=== PATIENT | male | born 1950 | race Hispanic/Latino ===

== ENCOUNTER 2017-07-19 09:57 | Emergency (ER) | payer OTHER ==
[~2017-07-19] VITALS: Ht 160 cm; Wt 65.0 kg
[2017-07-19] MEDS ORDERED: BUPROPION HCL100 MG PO (10:27)
[2017-07-19] MEDS ORDERED: SAW PALMETTO500 MG PO (10:27)
[2017-07-19] MEDS ORDERED: CLONAZEPAM0.5 MG PO (10:28)
[2017-07-19] MEDS ORDERED: MEMANTINE HCL10 MG PO (10:29)
[2017-07-19] MEDS ORDERED: LAMOTRIGINE150 MG PO (10:29)
[2017-07-19] MEDS ORDERED: ZOLPIDEM5 M1 PO (10:30)
[2017-07-19] MEDS ORDERED: BRIMONIDINE0.15 % OU (10:31)
[2017-07-19] MEDS ORDERED: XALATAN0.005 % OU (10:31)
[2017-07-19] MEDS ORDERED: VENLAFAXINE HCL75 M1 PO (10:32)
[2017-07-19] MEDS ORDERED: DOXYCYC MONO100 M1 PO (11:59)
[2017-07-19] MEDS ORDERED: TORADOL PO (11:59)
[2017-07-19 12:36] VITALS: BP 151/73
== END 2017-07-19 12:36 | disposition home or self-care (01) | DRG 563 ==
LOC: ED 09:57
PROC: 0HQGXZZ Repair Left Hand Skin, External Approach (ICD-10-PCS; principal; 2017-07-19)
DX: S62.667A Nondisplaced fracture of distal phalanx of left little finger, initial encounter for closed fracture (principal); S61.217A Laceration without foreign body of left little finger without damage to nail, initial encounter; W23.1XXA Caught, crushed, jammed, or pinched between stationary objects, initial encounter; Y93.89 Activity, other specified; Y92.009 Unspecified place in unspecified non-institutional (private) residence as the place of occurrence of the external cause

== ENCOUNTER 2017-07-22 09:16 | Emergency (ER) | payer OTHER ==
[~2017-07-22] VITALS: Ht 160 cm; Wt 62.0 kg
[~2017-07-22 09:16] MED LIST: BRIMONIDINE0.15 % OU; BUPROPION HCL100 MG PO; CLONAZEPAM0.5 MG PO; DOXYCYC MONO100 M1 PO; LAMOTRIGINE150 MG PO; MEMANTINE HCL10 MG PO; SAW PALMETTO500 MG PO; TORADOL PO; VENLAFAXINE HCL75 M1 PO; XALATAN0.005 % OU; ZOLPIDEM5 M1 PO
[2017-07-22 10:38] VITALS: BP 122/83
== END 2017-07-22 10:38 | disposition home or self-care (01) | DRG 950 ==
LOC: ED 09:16
DX: S61.217D Laceration without foreign body of left little finger without damage to nail, subsequent encounter (principal); G30.9 Alzheimer's disease, unspecified; F02.80 Dementia in other diseases classified elsewhere, unspecified severity, without behavioral disturbance, psychotic disturbance, mood disturbance, and anxiety; F32.9 Major depressive disorder, single episode, unspecified; X58.XXXD Exposure to other specified factors, subsequent encounter

== ENCOUNTER 2017-07-28 08:44 | Emergency (ER) | payer OTHER ==
[~2017-07-28] VITALS: Ht 160 cm; Wt 65.0 kg
[2017-07-28] MEDS ORDERED: DOXYCYC MONO100 M2 PO (09:10)
[2017-07-28 09:24] VITALS: BP 150/70
== END 2017-07-28 09:32 | disposition home or self-care (01) | DRG 950 ==
LOC: ED 08:44
DX: S61.211D Laceration without foreign body of left index finger without damage to nail, subsequent encounter (principal); G30.9 Alzheimer's disease, unspecified; F02.80 Dementia in other diseases classified elsewhere, unspecified severity, without behavioral disturbance, psychotic disturbance, mood disturbance, and anxiety; F32.9 Major depressive disorder, single episode, unspecified; X58.XXXD Exposure to other specified factors, subsequent encounter

== ENCOUNTER 2017-10-02 10:20 | Emergency (ER) | payer OTHER ==
[~2017-10-02] VITALS: Ht 160 cm; Wt 63.2 kg
[~2017-10-02 10:20] MED LIST changes: +DOXYCYC MONO100 M2 PO
[2017-10-02] MEDS ORDERED: LEVOTHYROXIN50 MCG PO (10:54)
[2017-10-02] MEDS ORDERED: ATORVASTATIN CA20 MG PO (10:54)
[2017-10-02 11:25] LABS: HEMATOCRIT 29.9 % (39.0-50.0); HEMOGLOBIN 10.3 g/dl (14.0-18.0); IMMATURE GRANULOCYTES 0.7 % (0.0-1.0); MEAN CELL VOLUME 97.1 fL CALC (80.0-100.0); MEAN CORPUSCULAR HGB 33.4 pG CALC (26.0-32.0); MEAN CORPUSCULAR HGB CONC 34.4 g/L CALC (32.0-36.0); NEUT# 3.02 thou/uL (1.82-7.42); RED BLOOD COUNT 3.08 mill/uL (4.70-6.10)
[2017-10-02 11:35] LABS: ALBUMIN 4.4 g/dL (3.2-5.0); ALKALINE PHOSPHATASE 108 u/l (38-126); ANION GAP 17 (6-22 (CALC)); BILIRUBIN, TOTAL 0.7 mg/dL (0.0-1.4); BUN 16 mg/dL (8-23); BUN/CREATININE RATIO 18 (12-20 (CALC)); CARBON DIOXIDE 27 mmol/l (22-30); CHLORIDE 103 mmol/l (95-108); CREATININE 0.9 mg/dL (0.7-1.3); GFR > 60 ML/MIN (>=60 (CALC)); GFR FOR AFR.AMER. > 60 ML/MIN (>=60 (CALC)); SGOT/AST 54 u/l (19-48); SGPT/ALT 62 u/l (11-66); SODIUM 143 mmol/l (137-146); TOTAL PROTEIN 7.6 g/dL (6.3-8.2)
[2017-10-02] MEDS ORDERED: PROVENTIL108 MCG/AC IN (11:41)
[2017-10-02] MEDS ORDERED: ZITHROMAX250 MG PO (11:41)
[2017-10-02] MEDS ORDERED: MEDDOSEPAK PO (11:41)
[2017-10-02 12:22] VITALS: BP 113/65
== END 2017-10-02 12:22 | disposition home or self-care (01) | DRG 153 ==
LOC: ED 10:20
PROVIDERS: Emergency Medicine
DX: J06.9 Acute upper respiratory infection, unspecified (principal); G30.9 Alzheimer's disease, unspecified; F02.80 Dementia in other diseases classified elsewhere, unspecified severity, without behavioral disturbance, psychotic disturbance, mood disturbance, and anxiety; G89.29 Other chronic pain; F32.9 Major depressive disorder, single episode, unspecified; R05 Cough

== ENCOUNTER 2017-10-18 15:44 | Emergency (ER) | payer OTHER ==
[~2017-10-18] VITALS: Ht 160 cm; Wt 60.0 kg
[~2017-10-18 15:44] MED LIST changes: +ATORVASTATIN CA20 MG PO; +LEVOTHYROXIN50 MCG PO; +MEDDOSEPAK PO; +PROVENTIL108 MCG/AC IN; +ZITHROMAX250 MG PO
[2017-10-18 16:47] LABS: HEMATOCRIT 34.1 % (39.0-50.0); HEMOGLOBIN 11.7 g/dl (14.0-18.0); IMMATURE GRANULOCYTES 0.3 % (0.0-1.0); MEAN CORPUSCULAR HGB 33.6 pG CALC (26.0-32.0); MEAN CORPUSCULAR HGB CONC 34.3 g/L CALC (32.0-36.0); NEUT# 2.05 thou/uL (1.82-7.42); RED BLOOD COUNT 3.48 mill/uL (4.70-6.10); RED CELL DISTRI WIDTH 16.4 % (11.5-15.5)
[2017-10-18 17:03] LABS: ALBUMIN 4.7 g/dL (3.2-5.0); ALKALINE PHOSPHATASE 100 u/l (38-126); ANION GAP 12 (6-22 (CALC)); BILIRUBIN, TOTAL 1.1 mg/dL (0.0-1.4); BUN 16 mg/dL (8-23); BUN/CREATININE RATIO 18 (12-20 (CALC)); CARBON DIOXIDE 27 mmol/l (22-30); CHLORIDE 106 mmol/l (95-108); CREATININE 0.9 mg/dL (0.7-1.3); GFR > 60 ML/MIN (>=60 (CALC)); GFR FOR AFR.AMER. > 60 ML/MIN (>=60 (CALC)); POTASSIUM 3.9 mmol/l (3.5-5.1); SGOT/AST 55 u/l (19-48); SGPT/ALT 62 u/l (11-66); SODIUM 142 mmol/l (137-146); TOTAL PROTEIN 8.4 g/dL (6.3-8.2)
[2017-10-18] MEDS ORDERED: PROVENTIL108 MCG/AC IN (17:24)
[2017-10-18] MEDS ORDERED: MEDDOSEPAK PO (17:24)
[2017-10-18] MEDS ORDERED: ZITHROMAX250 MG PO (17:24)
[2017-10-18 17:26] VITALS: BP 142/84
== END 2017-10-18 17:37 | disposition home or self-care (01) | DRG 203 ==
LOC: ED 15:44
PROVIDERS: Emergency Medicine
DX: J40 Bronchitis, not specified as acute or chronic (principal); R06.02 Shortness of breath; R09.89 Other specified symptoms and signs involving the circulatory and respiratory systems; R05 Cough; R51 Headache

== ENCOUNTER 2017-12-09 09:08 | Emergency (ER) | payer OTHER ==
[~2017-12-09] VITALS: Ht 160 cm; Wt 59.1 kg
[2017-12-09 11:50] VITALS: BP 136/92
== END 2017-12-09 11:50 | disposition home or self-care (01) ==
LOC: ED 09:08
DX: S00.12XA Contusion of left eyelid and periocular area, initial encounter (principal); E11.9 Type 2 diabetes mellitus without complications; G30.9 Alzheimer's disease, unspecified; F02.80 Dementia in other diseases classified elsewhere, unspecified severity, without behavioral disturbance, psychotic disturbance, mood disturbance, and anxiety; F32.9 Major depressive disorder, single episode, unspecified; W22.09XA Striking against other stationary object, initial encounter; Y93.89 Activity, other specified; Y92.510 Bank as the place of occurrence of the external cause

== ENCOUNTER 2019-10-02 09:23 | Emergency (ER) | payer OTHER ==
[2019-10-02] MEDS ORDERED: EFFEXOR37.5 MG PO (10:06)
[2019-10-02 10:29] LABS: HEMATOCRIT 35.4 % (39.0-50.0); HEMOGLOBIN 12.3 g/dl (14.0-18.0); IMMATURE GRANULOCYTES 0.4 % (0.0-5.0); MEAN CELL VOLUME 95.9 fL CALC (80.0-100.0); MEAN CORPUSCULAR HGB 33.3 pG CALC (26.0-32.0); MEAN CORPUSCULAR HGB CONC 34.7 g/dL CAL (32.0-36.0); NEUT# 3.24 thou/uL (1.82-7.42); RED BLOOD COUNT 3.69 mill/uL (4.70-6.10); RED CELL DISTRI WIDTH 14.5 % (11.5-15.5)
[2019-10-02 10:45] LABS: ALBUMIN 4.3 g/dL (3.2-5.0); ALKALINE PHOSPHATASE 86 u/l (38-126); ANION GAP 14 (6-22 (CALC)); BILIRUBIN, TOTAL 0.7 mg/dL (0.0-1.4); BUN 11 mg/dL (8-23); BUN/CREATININE RATIO 12 (12-20 (CALC)); CARBON DIOXIDE 23 mmol/l (22-30); CHLORIDE 103 mmol/l (95-108); CREATININE 0.9 mg/dL (0.7-1.3); GFR > 60 ML/MIN (>=60 (CALC)); GFR FOR AFR.AMER. > 60 ML/MIN (>=60 (CALC)); LIPASE 50 u/l (23-300); POTASSIUM 3.8 mmol/l (3.5-5.1); SGOT/AST 35 u/l (19-48); SODIUM 136 mmol/l (137-146); TOTAL PROTEIN 7.2 g/dL (6.3-8.2)
[2019-10-02 11:05] LABS: URINE BILIRUBIN - DIPSTICK NEGATIVE (NEGATIVE); URINE BLOOD DIPSTICK NEGATIVE (NEGATIVE); URINE COLOR YELLOW; URINE GLUCOSE - DIPSTICK NEGATIVE (NEGATIVE); URINE KETONE NEGATIVE (NEGATIVE); URINE LEUK ESTERASE NEGATIVE (NEGATIVE); URINE NITRITE - DIPSTICK NEGATIVE (Negative); URINE PROTEIN - DIPSTICK NEGATIVE (NEG-TRACE); URINE SPECIFIC GRAVITY 1.015
[2019-10-02] MEDS ORDERED: VOLTAREN1%GEL TOP (12:04)
[2019-10-02 12:11] VITALS: BP 124/68
== END 2019-10-02 12:18 | disposition home or self-care (01) ==
LOC: ED 09:23
PROVIDERS: Family Medicine
DX: R07.81 Pleurodynia (principal); E11.9 Type 2 diabetes mellitus without complications; F03.90 Unspecified dementia, unspecified severity, without behavioral disturbance, psychotic disturbance, mood disturbance, and anxiety; W06.XXXA Fall from bed, initial encounter; Y92.003 Bedroom of unspecified non-institutional (private) residence as the place of occurrence of the external cause

== ENCOUNTER 2021-05-05 10:32 | Emergency (ER) | payer OTHER ==
[~2021-05-05] VITALS: Ht 160 cm; Wt 59.0 kg
[~2021-05-05 10:32] MED LIST changes: +EFFEXOR37.5 MG PO; +VOLTAREN1%GEL TOP
[2021-05-05 12:00] LABS: ALBUMIN 4.2 g/dL (3.2-5.0); ALKALINE PHOSPHATASE 122 u/l (38-126); ANION GAP 12 (6-22 (CALC)); BUN 14 mg/dL (8-23); BUN/CREATININE RATIO 15 (12-20 (CALC)); C-REACTIVE PROTEIN 4.3 mg/dL (0-0.9); CARBON DIOXIDE 27 mmol/l (22-30); CHLORIDE 102 mmol/l (95-108); CREATININE 0.9 mg/dL (0.7-1.3); GFR > 60 ML/MIN (>=60 (CALC)); GFR FOR AFR.AMER. > 60 ML/MIN (>=60 (CALC)); POTASSIUM 4.4 mmol/l (3.5-5.1); SGOT/AST 28 u/l (19-48); SODIUM 136 mmol/l (137-146); TOTAL PROTEIN 7.1 g/dL (6.3-8.2)
[2021-05-05 12:30] LABS: HEMATOCRIT 36.8 % (39.0-50.0); HEMOGLOBIN 12.3 g/dl (14.0-18.0); IMMATURE GRANULOCYTES 0.6 % (0.0-5.0); MEAN CELL VOLUME 95.6 fL CALC (80.0-100.0); MEAN CORPUSCULAR HGB 31.9 pG CALC (26.0-32.0); MEAN CORPUSCULAR HGB CONC 33.4 g/dL CAL (32.0-36.0); NEUT# 4.85 thou/uL (1.82-7.42); RED BLOOD COUNT 3.85 mill/uL (4.70-6.10); RED CELL DISTRI WIDTH 15.2 % (11.5-15.5)
[2021-05-05] MEDS ORDERED: OMNI-PAC300 MG PO (13:10)
[2021-05-05] MEDS ORDERED: MOTRIN400 MG/TAB PO (13:27)
[2021-05-05 13:28] VITALS: BP 112/65
== END 2021-05-05 13:30 | disposition home or self-care (01) ==
LOC: ED 10:32
PROVIDERS: Family Medicine
DX: L03.115 Cellulitis of right lower limb (principal); I10 Essential (primary) hypertension; E11.9 Type 2 diabetes mellitus without complications; E03.9 Hypothyroidism, unspecified; F03.90 Unspecified dementia, unspecified severity, without behavioral disturbance, psychotic disturbance, mood disturbance, and anxiety; F41.9 Anxiety disorder, unspecified; F32.A Depression, unspecified; N40.0 Benign prostatic hyperplasia without lower urinary tract symptoms; Z20.822 Contact with and (suspected) exposure to COVID-19

== ENCOUNTER 2023-11-02 14:58 | Emergency (ER) | payer MEDICARE, OTHER ==
[~2023-11-02] VITALS: Ht 160 cm; Wt 63.6 kg
[~2023-11-02 14:58] MED LIST changes: +MOTRIN400 MG/TAB PO; +OMNI-PAC300 MG PO
[2023-11-02 15:13] VITALS: BP 136/82
[2023-11-02 15:16] VITALS: BP 119/76
[2023-11-02 15:29] LABS: BASO% 0.3 % (0-3); EOS% 0.9 % (0-8); HEMATOCRIT 31.8 % (39.0-50.0); HEMOGLOBIN 11.2 g/dl (14.0-18.0); IMMATURE GRANULOCYTES 0.3 % (0.0-5.0); LYMPH% 25.8 % (15-41); MEAN CELL VOLUME 91.9 fL CALC (80.0-100.0); MEAN CORPUSCULAR HGB 32.4 pG CALC (26.0-32.0); MEAN CORPUSCULAR HGB CONC 35.2 g/dL CAL (32.0-36.0); MONO% 9.5 % (2-13); NEUT# 2.06 thou/uL (1.82-7.42); NEUT% 63.2 % (42-76); RED BLOOD COUNT 3.46 mill/uL (4.70-6.10); RED CELL DISTRI WIDTH 14.6 % (11.5-15.5)
[2023-11-02 15:30] VITALS: BP 119/77
[2023-11-02 15:41] LABS: ALBUMIN 3.8 g/dL (3.2-5.0); BILIRUBIN, TOTAL 0.8 mg/dL (0.2-1.3); CREATININE 0.9 mg/dL (0.7-1.3); POTASSIUM 4.4 mmol/l (3.5-5.1); TOTAL PROTEIN 6.7 g/dL (6.3-8.2)
[2023-11-02 15:45] VITALS: BP 109/77
[2023-11-02 16:00] VITALS: BP 117/70
[2023-11-02] MEDS ORDERED: PAXLOVID PO (16:16)
[2023-11-02 16:21] VITALS: BP 117/70
== END 2023-11-02 16:27 | disposition home or self-care (01) ==
LOC: ED 14:58
PROVIDERS: Family Medicine
DX: U07.1 COVID-19 (principal); R05.9 Cough, unspecified; R06.2 Wheezing; E11.9 Type 2 diabetes mellitus without complications; F03.90 Unspecified dementia, unspecified severity, without behavioral disturbance, psychotic disturbance, mood disturbance, and anxiety; F41.9 Anxiety disorder, unspecified; F32.A Depression, unspecified